=== PATIENT | female | born 1945 | race Caucasian/White ===

== ENCOUNTER 2016-11-10 14:26 | Emergency (ER) | payer OTHER, BC ==
[~2016-11-10] VITALS: Ht 162.6 cm; Wt 72.6 kg
[~2016-11-10 14:26] MED LIST: ACETAMINOPHEN325 M1 PO; ASPIR 8181 M1 PO; ASPIRIN EC81 M1 PO; AVAPRO 150 MG150 M1 PO; B12INJ IM; CALCIUM 500 +1 EAC5 PO; CALCIUM 600 +1 EAC1 PO; CALTRATE 600 +1 EACH PO; CARAFATE 1 GM TA1 G1 PO; COLACE100 MG PO; COUMADIN 1MG TAB1 M1 PO; COUMADIN 5 MG TA5 M1 PO; COUMADIN6 MG PO; CRESTOR10 MG PO; CRESTOR20 MG PO; DAILY VITAMIN1 EAC5 PO; ESTRACE1 MG PO; GENTEAL3.5 ML OPHTHALMIC; HYDROCODONE-AP1 EAC6; LIPITOR20 MG PO; MACROBID 100 M100 M1 PO; MINIPRIN81 MG PO; MUCINEX600 MG PO; MULTIVITAMINS1 EAC7 PO; NORTRIPTYLINE H25 M3 PO; NORVASC 2.5 MG2.5 M1 PO; PREMARIN VAGI42.5 G1 TOP; PROPRANOLOL 1010 MG PO; PROPRANOLOL 20M20 M1 PO; PROTONIX40 M1 PO; PROTONIX40 M3 PO; PROZAC 20 MG20 M1 PO; PROZAC 20 MG20 MG PO; REFRESH5 ML OPHTHALMIC; SENNA PO; THERA-M CAPLET1 EACH PO; TRAMADOL 50 MG50 MG PO; TYLENOL EX-STR500 M2 PO; ULTRAM 50MG TAB50 MG PO; VISINE15 ML OPHTHALMIC; VITAMIN D1000 UNI1 PO; XANAX 0.5 MG0.5 M1 PO; XANAX 0.5 MG0.5 MG PO; XANAX PO; XANAX XR1 MG PO; XANAX1 MG PO
[2016-11-10] MEDS ORDERED: PROPRANOLOL 20M20 M1 PO (14:43)
[2016-12-02] MEDS ORDERED: DULCOLAX5 MG PO (11:14)
[2016-12-02] MEDS ORDERED: COUMADIN 3 MG TA3 M1 PO (11:14)
[2016-12-02] MEDS ORDERED: COUMADIN 5 MG TA5 M1 PO (11:14)
[2016-12-02] MEDS ORDERED: MIRALAX17 GM PO (11:14)
[2016-12-02] MEDS ORDERED: NORCO 5-325 TA1 EACH PO (11:14)
[2016-12-03] MEDS ORDERED: ENOXAPARIN80 MG/0.1 SUBQ (15:26)
[2016-12-03] MEDS ORDERED: DUONEB 2.5-0.5 M3 ML INH (16:18)
== END 2016-11-10 17:07 | disposition home or self-care (01) ==
LOC: ER 14:26
DX: S76.812A Strain of other specified muscles, fascia and tendons at thigh level, left thigh, initial encounter (principal); W19.XXXA Unspecified fall, initial encounter; Y93.89 Activity, other specified; Y92.89 Other specified places as the place of occurrence of the external cause; Y99.8 Other external cause status; I10 Essential (primary) hypertension; F10.99 Alcohol use, unspecified with unspecified alcohol-induced disorder; Z90.710 Acquired absence of both cervix and uterus; Z88.1 Allergy status to other antibiotic agents; Z91.011 Allergy to milk products; Z88.0 Allergy status to penicillin; Z88.2 Allergy status to sulfonamides; Z88.8 Allergy status to other drugs, medicaments and biological substances; Z91.09 Other allergy status, other than to drugs and biological substances; Z87.891 Personal history of nicotine dependence

== ENCOUNTER 2016-11-23 15:08 | Emergency (ER) | payer OTHER, BC ==
[~2016-11-23] VITALS: Ht 160 cm; Wt 68.0 kg
[2016-11-23 15:46] LABS: ABSOLUTE NEUTROPHILS 5.2 thou/uL (1.4-8.2); BASOPHILS 0.8 % (0.0-2.0); EOSINOPHILS 9.6 % (0.0-3.0); HEMOGLOBIN 11.2 gm/dL (12.0-15.0); LYMPHOCYTES 11.2 % (24.0-44.0); MCH 34.1 pg (26.0-34.0); MCV 97.3 fL (80.0-100.0); PLATELET COUNT 334 thou/uL (150-400); POLYS 61.4 % (36.0-66.0); RBC 3.29 mil/uL (4.20-5.00); RDW 13.4 % (10.5-14.5); WBC 8.5 thou/uL (4.0-11.0)
[2016-11-23 15:52] LABS: POTASSIUM 4.4 mmol/L (3.5-5.1)
[2016-11-23 15:59] LABS: INR 3.3; PROTIME 34.3 Seconds (9.3-11.4)
[2016-11-23 16:01] LABS: MANUAL DIFF NO
[2016-11-23 16:29] LABS: URINE BILIRUBIN NEGATIVE (Negative); URINE BLOOD TRACE (Negative); URINE COLOR YELLOW; URINE GLUCOSE-RANDOM* NEGATIVE (Negative); URINE KETONES NEGATIVE (Negative); URINE LEUKOCYTES-REFLEX NEGATIVE (Negative); URINE PROTEIN (DIPSTICK) NEGATIVE (Negative); URINE SPECIFIC GRAVITY 1.015 (1.003-1.035); URINE UROBILINOGEN 0.2 E.U./dl (0.2-1.0)
[2016-11-23] MEDS ORDERED: PREDNISONE 20 M20 MG PO (16:49)
[2016-11-23] MEDS ORDERED: PROVENTIL HFA6.7 G1 INH (16:49)
[2016-11-23] MEDS ORDERED: HYDROCODONE-AP1 EAC6 PO (16:54)
[2016-11-23] MEDS ORDERED: ZPAK PO (17:35)
[2016-12-02] MEDS ORDERED: COUMADIN 5 MG TA5 M1 PO (11:14)
[2016-12-02] MEDS ORDERED: MIRALAX17 GM PO (11:14)
[2016-12-02] MEDS ORDERED: DULCOLAX5 MG PO (11:14)
[2016-12-02] MEDS ORDERED: COUMADIN 3 MG TA3 M1 PO (11:14)
[2016-12-02] MEDS ORDERED: NORCO 5-325 TA1 EACH PO (11:14)
[2016-12-03] MEDS ORDERED: ENOXAPARIN80 MG/0.1 SUBQ (15:26)
[2016-12-03] MEDS ORDERED: DUONEB 2.5-0.5 M3 ML INH (16:18)
== END 2016-11-23 17:39 | disposition home or self-care (01) ==
LOC: ER 15:08
PROVIDERS: Physician Assistant
DX: S32.512A Fracture of superior rim of left pubis, initial encounter for closed fracture (principal); I63.9 Cerebral infarction, unspecified; M81.0 Age-related osteoporosis without current pathological fracture; E78.5 Hyperlipidemia, unspecified; F32.9 Major depressive disorder, single episode, unspecified; F41.9 Anxiety disorder, unspecified; I10 Essential (primary) hypertension; Z90.710 Acquired absence of both cervix and uterus; Z88.0 Allergy status to penicillin; Z88.1 Allergy status to other antibiotic agents; Z88.2 Allergy status to sulfonamides; Z91.011 Allergy to milk products; Z87.891 Personal history of nicotine dependence; W18.30XA Fall on same level, unspecified, initial encounter; Y93.89 Activity, other specified; Y92.89 Other specified places as the place of occurrence of the external cause; Y99.9 Unspecified external cause status

== ENCOUNTER → 2021-10-02 | Emergency (ER) | payer OTHER, BC ==
[~2021-10-02] VITALS: Ht 162.6 cm; Wt 68.0 kg
[~2021-10-02] MED LIST changes: +COUMADIN 3 MG TA3 M1 PO; +DULCOLAX5 MG PO; +DUONEB 2.5-0.5 M3 ML INH; +ENOXAPARIN80 MG/0.1 SUBQ; +HYDROCODONE-AP1 EAC6 PO; +MIRALAX17 GM PO; +NORCO 5-325 TA1 EACH PO; +PREDNISONE 20 M20 MG PO; +PROVENTIL HFA6.7 G1 INH; +ZPAK PO
--- NOTE | ~2021-10-02 | EMS ---
[place] [address] EMS Patient Care Report Name: DEE DEE MACIAS Room #: REG WILLEM [facility]#: [id number] Admission: 10/02/21 Attend Phys: Discharge: Date of : 45 Report #: [id number] THIS REPORT FOR: //name// Report Transmitted: 10/05/2021 06:47 EMS Care Summary [place], [place]/[facility] Incident [id number] @ 10/02/2021 11:03 Incident Location [address] [id number] Patient DEE DEE WHITE Female, 76 Years 1945 Patient Address [address] [place] [address] Patient History Other, Patient Allergies Other drug allergy, Patient Medications Warfarin, Chief Complaint constipation Disposition Transported No Lights/[place] Dispatch Reason Abdominal Pain/Problems Transported To [facility] Narrative M29 dispatched to sick at residence. O/A M29 found female walking out to 9. Pt reported she had abdominal discomfort. Pt reported she had a bowel movement yesterday, but had to take laxatives'. Pt moved to [facility].Pt transported to [place]. [address] [address] EMS Patient Care Report Name: DEE DEE MACIAS Room #: REG WILLEM [facility]#: [id number] Admission: 10/02/21 Attend Phys: Discharge: Date of : 45 Report #: [id number] Initial Vitals @11:16P: 67,R: 18,BP: 136/64,Pain: 0/10,GCS: 14,CO: 0,SpO2: 97,Revised Trauma: 12, @11:18P: 68,R: 18,BP: 139/59,Pain: 0/10,GCS: 14,CO: 1,SpO2: 97,Revised Trauma: 12, Assessments @11:17MENTAL:Confused,Place Oriented,Person Oriented,Event Oriented,SKIN:No Abnormalities,HEENT:Head/Face: No Abnormalities,Eyes: No Abnormalities,Neck/Airway: No Abnormalities,LUNG SOUNDS:General: No Abnormalities,Left Upper: No Abnormalities,Right Upper: No Abnormalities,Left Lower: No Abnormalities,Right Lower: No Abnormalities,ABDOMEN:General: No Abnormalities,Left Upper: No Abnormalities,Right Upper: No Abnormalities,Left Lower: No Abnormalities,Right Lower: No Abnormalities,PELVIS//GI:No Abnormalities,EXTREMITIES:Left Arm: No Abnormalities,Right Arm: No Abnormalities,Left Leg: No Abnormalities,Right Leg: No Abnormalities,PULSE:NEURO:No Abnormalities,@11:23MENTAL:Confused,Event Oriented,Place Oriented,Person Oriented,SKIN:No Abnormalities,HEENT:Head/Face: No Abnormalities,Eyes: No Abnormalities,Neck/Airway: No Abnormalities,LUNG SOUNDS:General: No Abnormalities,Left Upper: No Abnormalities,Right Upper: No Abnormalities,Left Lower: No Abnormalities,Right Lower: No Abnormalities,ABDOMEN:General: No Abnormalities,Left Upper: No Abnormalities,Right Upper: No Abnormalities,Left Lower: No Abnormalities,Right Lower: No Abnormalities,PELVIS//GI:No Abnormalities,EXTREMITIES:Left Arm: No Abnormalities,Right Arm: No Abnormalities,Left Leg: No Abnormalities,Right Leg: No Abnormalities,PULSE:NEURO:No Abnormalities, Impression Abdominal Pain Timeline 11:,Call Received 11:01,Dispatch Notified 11:03,Dispatched 11:04,En Route 11:10,On Scene 11:11,At Patient 11:16,BP: 136/64 M,PULSE: 67,RR: 18 R,SPO2: 97 Ox,ETCO2: ,BG: ,PAIN: 0,GCS: 14, 11:18,BP: 139/59 M,PULSE: 68,RR: 18 R,SPO2: 97 Ox,ETCO2: ,BG: ,PAIN: 0,GCS: 14, 11:23,Depart Scene 11:42,At Destination 12:00,Call Closed Disclaimer [facility] [address] [place] [address] EMS Patient Care Report Name: DEE DEE MACIAS Room #: REG [facility]#: [id number] Admission: 10/02/21 Attend Phys: Discharge: Date of : 45 Report #: [id number] v1.1 Copyright 2020 [employer] This EMS Care Summary contains data elements from the applicable legal record (which may be displayed differently). It is designed to provide pertinent information for the following purposes: continuity of care, clinical quality, and state data reporting. The complete legal record is available to ED staff and administrators of the receiving hospital in [facility]'s Patient Tracker. All data is provided "as is."
[2021-10-02 12:25] LABS: ABSOLUTE NEUTROPHILS 6.3 thou/uL (1.4-8.2); BASOPHILS 0.8 % (0.0-2.0); EOSINOPHILS 2.5 % (0.0-3.0); HEMATOCRIT 32.5 % (37.0-47.0); LYMPHOCYTES 11.9 % (24.0-44.0); MCHC 33.7 g/dL (28.0-37.0); MCV 94.8 fL (80.0-100.0); PLATELET COUNT 292 thou/uL (150-400); POLYS 73.8 % (36.0-66.0); RBC 3.43 mil/uL (4.20-5.00); RDW 13.9 % (10.5-14.5); WBC 8.5 thou/uL (4.0-11.0)
[2021-10-02 12:38] LABS: ANION GAP 7 mmol/L (7-16); BUN 18 mg/dL (7-18); CALCIUM 8.8 mg/dL (8.5-10.1); CHLORIDE 101 mmol/L (98-107); CO2 27 mmol/L (21-32); GLUCOSE 121 mg/dL (74-106); POTASSIUM 4.1 mmol/L (3.5-5.1); SODIUM 135 mmol/L (136-145)
[2021-10-02 12:43] LABS: ALBUMIN 3.3 g/dL (3.4-5.0); DIRECT BILIRUBIN < 0.1 mg/dL (<0.1-0.2); LIPASE 55 U/L (73-393); SGOT 18 U/L (15-37); SGPT 19 U/L (30-65); TOTAL BILIRUBIN 0.5 mg/dL (0.2-1.0); TOTAL PROTEIN 7.1 g/dL (6.4-8.2)
[2021-10-02 13:40] LABS: URINE BILIRUBIN NEGATIVE (Negative); URINE BLOOD NEGATIVE (Negative); URINE CLARITY CLEAR; URINE COLOR YELLOW; URINE GLUCOSE-RANDOM* NEGATIVE (Negative); URINE KETONES NEGATIVE (Negative); URINE NITRITE-REFLEX NEGATIVE (Negative); URINE PROTEIN (DIPSTICK) NEGATIVE (Negative); URINE SPECIFIC GRAVITY 1.015 (1.005-1.035); URINE UROBILINOGEN 0.2 E.U./dl (0.2-1.0)
[2021-10-02 13:41] LABS: URINE LEUKOCYTES-REFLEX 2+ (Negative)
[2021-10-02 13:52] LABS: SQUAMOUS 4-10 Moderate /LPF (0-3)
[2021-10-02 13:53] LABS: CASTS None Seen /LPF (None Seen); CRYSTALS None Seen /LPF (None Seen); URINE RBC None Seen /HPF (NONE SEEN)
[2021-10-02 14:48] VITALS: BP 142/58
== END ==
LOC: ER 11:48
PROVIDERS: Nurse Practitioner
DX: K59.00 Constipation, unspecified (principal); N39.0 Urinary tract infection, site not specified; I10 Essential (primary) hypertension; E78.5 Hyperlipidemia, unspecified; I73.9 Peripheral vascular disease, unspecified; M81.0 Age-related osteoporosis without current pathological fracture; F41.9 Anxiety disorder, unspecified; F32.9 Major depressive disorder, single episode, unspecified; Z86.73 Personal history of transient ischemic attack (TIA), and cerebral infarction without residual deficits; Z95.1 Presence of aortocoronary bypass graft; Z90.710 Acquired absence of both cervix and uterus; Z90.89 Acquired absence of other organs; Z98.890 Other specified postprocedural states; Z79.891 Long term (current) use of opiate analgesic; Z79.899 Other long term (current) drug therapy; Z79.1 Long term (current) use of non-steroidal anti-inflammatories (NSAID); Z88.6 Allergy status to analgesic agent; Z88.1 Allergy status to other antibiotic agents; Z91.011 Allergy to milk products; Z88.0 Allergy status to penicillin; Z88.2 Allergy status to sulfonamides; Z91.018 Allergy to other foods; Z91.048 Other nonmedicinal substance allergy status; Z87.891 Personal history of nicotine dependence

== ENCOUNTER 2021-10-26 00:36 | Emergency (ER) | payer OTHER, BC ==
[~2021-10-26] VITALS: Ht 170.2 cm; Wt 86.2 kg
--- NOTE | ~2021-10-26 | EMS ---
[place] [id number] EMS Patient Care Report Name: DEE DEE MACIAS Room #: DEP WILLEM [facility]en[facility]#: [id number] Admission: 10/26/21 Attend Phys: Discharge: 10/26/21 Date of : 45 Report #: [id number] THIS REPORT FOR: //name// Report Transmitted: 10/29/2021 14:53 EMS Care Summary [place], [place]/[facility] Incident [id number] @ 10/25/2021 23:56 Incident Location [address] [place] [address] Patient DEE DEE MACIAS Female, 76 Years 1945 Patient Address [address] [place] [address] Patient History Dementia,Cardiac Condition - Other, Patient Allergies No known allergies, Patient Medications Avapro, Coumadin, Calcium, Senna, Xanax, Propranolol, Chief Complaint LOWER ABD PAIN AND CONSTIPATION Disposition Transported No Lights/[place] Dispatch Reason Abdominal Pain/Problems Transported To [facility] Narrative UPON ARRIVAL WE FOUND OUR 76 YEAR OLD FEMALE PATIENT, WITH A HX OF DEMENTIA, SITTING IN THE KITCHEN OF A RESIDENCE WITH HER BY HER SIDE COMPLAINING OF CAMPY LOWER ABD PAIN AND CONSTIPATION X 3 DAYS. THE PATIENT DENIES ANY N/V/D AND SHE REQUESTS TRANSPORT TO [facility] FOR EVALUATION. [place] [id number] EMS Patient Care Report Name: DEE DEE MACIAS [id number] Admission: 10/26/21 Attend Phys: Discharge: 10/26/21 Date of : 45 Report #: [id number] Initial Vitals @00:18P: 58,R: 16,BP: 159/80,Pain: 4/10,GCS: 14,SpO2: 97,Revised Trauma: 12, @00:33P: 60,R: 18,BP: 160/80,Pain: 4/10,GCS: 14,SpO2: 97,Revised Trauma: 12, Assessments @00:08MENTAL:Confused,Place Oriented,Event Oriented,Person Oriented,SKIN:HEENT:Eyes: Right Pupil: 4-mm,Eyes: Left Pupil: 4-mm,Head/Face: No Abnormalities,Neck/Airway: No Abnormalities,LUNG SOUNDS:Left Lower: Tenderness,Right Lower: Tenderness,General: Other,ABDOMEN:Left Lower: Tenderness,Right Lower: Tenderness,General: Other,PELVIS//GI:No Abnormalities,EXTREMITIES:Left Arm: No Abnormalities,Right Arm: No Abnormalities,Left Leg: No Abnormalities,Right Leg: No Abnormalities,PULSE:Radial: 2+ Normal,NEURO:No Abnormalities, Impression Constipation Procedures @00:08 ALS Assessment Response: UnchangedSucceeded Timeline 23:45,Dispatch Notified 23:56,Dispatched 23:58,En Route 00:06,On Scene 00:08,At Patient 00:08,ALS Assessment,Response: UnchangedSucceeded, 00:18,BP: 159/80 M,PULSE: 58,RR: 16 R,SPO2: 97 Ox,ETCO2: ,BG: ,PAIN: 4,GCS: 14, 00:19,Depart Scene 00:33,BP: 160/80 M,PULSE: 60,RR: 18 R,SPO2: 97 Ox,ETCO2: ,BG: ,PAIN: 4,GCS: 14, 00:34,At Destination 00:42,Call Closed 23:45,Call Received Disclaimer v1.1 Copyright 2020 [employer] This EMS Care Summary contains data elements from the applicable legal record (which may be displayed differently). It is designed to provide pertinent information for the following purposes: continuity of care, clinical quality, and state data reporting. The complete legal record is available to ED staff and administrators of the receiving hospital in [employer]'s Patient Tracker. All data is provided "as is."
[2021-10-26 01:21] LABS: ABSOLUTE NEUTROPHILS 6.1 thou/uL (1.4-8.2); BASOPHILS 0.6 % (0.0-2.0); EOSINOPHILS 4.1 % (0.0-3.0); HEMATOCRIT 31.5 % (37.0-47.0); HEMOGLOBIN 10.8 gm/dL (12.0-15.0); MCH 32.4 pg (26.0-34.0); MCHC 34.3 g/dL (28.0-37.0); MCV 94.5 fL (80.0-100.0); MONOCYTES 10.5 % (1.0-8.0); PLATELET COUNT 317 thou/uL (150-400); POLYS 64.8 % (36.0-66.0); RBC 3.33 mil/uL (4.20-5.00); RDW 13.8 % (10.5-14.5); WBC 9.3 thou/uL (4.0-11.0)
[2021-10-26 01:28] LABS: CREATININE 1.2 mg/dL (0.6-1.0); POTASSIUM 3.9 mmol/L (3.5-5.1)
[2021-10-26] MEDS ORDERED: NAPROXEN375 MG PO (04:02)
[2021-10-26] MEDS ORDERED: MIRALAX119 GM PO (04:02)
[2021-10-26 05:54] VITALS: BP 168/65
== END 2021-10-26 06:35 | disposition home or self-care (01) ==
LOC: ER 00:36
PROVIDERS: Emergency Medicine
DX: R10.30 Lower abdominal pain, unspecified (principal); I10 Essential (primary) hypertension; E78.5 Hyperlipidemia, unspecified; I73.9 Peripheral vascular disease, unspecified; F41.9 Anxiety disorder, unspecified; F32.9 Major depressive disorder, single episode, unspecified; Z86.73 Personal history of transient ischemic attack (TIA), and cerebral infarction without residual deficits; Z95.1 Presence of aortocoronary bypass graft; Z90.710 Acquired absence of both cervix and uterus; Z90.89 Acquired absence of other organs; Z98.890 Other specified postprocedural states; Z79.82 Long term (current) use of aspirin; Z79.1 Long term (current) use of non-steroidal anti-inflammatories (NSAID); Z79.891 Long term (current) use of opiate analgesic; Z79.899 Other long term (current) drug therapy; Z88.6 Allergy status to analgesic agent; Z88.1 Allergy status to other antibiotic agents; Z91.011 Allergy to milk products; Z88.0 Allergy status to penicillin; Z88.2 Allergy status to sulfonamides; Z88.8 Allergy status to other drugs, medicaments and biological substances; Z91.09 Other allergy status, other than to drugs and biological substances; Z87.891 Personal history of nicotine dependence

== ENCOUNTER 2021-12-09 15:34 | Emergency (ER) | payer OTHER, BC ==
[~2021-12-09] VITALS: Ht 160 cm; Wt 68.0 kg
--- NOTE | ~2021-12-09 | EMS ---
[address] [address] EMS Patient Care Report Name: DEE DEE MACIAS Room #: DEP WILLEM [facility]en[facility]#: [id number] Admission: 12/09/21 Attend Phys: Discharge: 12/09/21 Date of : 45 Report #: [id number] THIS REPORT FOR: //name// Report Transmitted: 12/11/2021 13:59 EMS Care Summary [place], [place]/[facility] Incident [id number] @ 12/09/2021 15:00 Incident Location [address] [place] [address] Patient DEE DEE MACIAS Female, 76 Years 1945 Patient Address [address] [place] [address] Patient History Dementia,Cardiac Condition - Other, Patient Allergies No known allergies, Patient Medications Calcium, Avapro, Senna, Coumadin, Xanax, Propranolol, Chief Complaint bowel obstruction Disposition Transported No Lights/[place] Dispatch Reason Abdominal Pain/Problems Transported To [facility] Narrative arrived to find patient meeting the ambulance stating that she has been having abdominal pain for a few days. patient states that her stomach is now swollen and that she thinks it is a bowel obstruction which she has a history of. patient and all belongings are taken to [facility] [place] further [place] [address] EMS Patient Care Report Name: DEE DEE MACIAS [facility] #: [facility] [id number] Admission: 12/09/21 Attend Phys: Discharge: 12/09/21 Date of : 45 Report #: [id number] patient is conscious and breathing upon leaving the room. Initial Vitals @15:10P: 68,R: 20,BP: 147/64,Pain: 6/10,GCS: 15,SpO2: 99,Revised Trauma: 12, @15:21P: 68,R: 20,BP: 140/68,Pain: 6/10,GCS: 15,SpO2: 98,Revised Trauma: 12, Assessments @15:09MENTAL:No Abnormalities,SKIN:No Abnormalities,HEENT:Head/Face: No Abnormalities,Eyes: No Abnormalities,Neck/Airway: No Abnormalities,LUNG SOUNDS:Left Lower: Tenderness,Right Lower: Tenderness,Right Upper: Tenderness,Right Lower: Distension,Left Lower: Distension,Left Upper: Distension,Left Upper: Tenderness,Right Upper: Distension,General: Other,ABDOMEN:Left Lower: Tenderness,Right Lower: Tenderness,Right Upper: Tenderness,Right Lower: Distension,Left Lower: Distension,Left Upper: Distension,Left Upper: Tenderness,Right Upper: Distension,General: Other,PELVIS//GI:No Abnormalities,EXTREMITIES:Left Arm: No Abnormalities,Right Arm: No Abnormalities,Left Leg: No Abnormalities,Right Leg: No Abnormalities,PULSE:NEURO:No Abnormalities, Impression Abdominal Pain Procedures @15:08 ALS Assessment Response: UnchangedSucceeded @15:09 Stretcher Response: Unchanged Timeline 14:55,Call Received 14:55,Dispatch Notified 15:00,Dispatched 15:01,En Route 15:07,On Scene 15:08,At Patient 15:08,ALS Assessment,Response: UnchangedSucceeded, 15:09,Stretcher,Response: Unchanged 15:10,BP: 147/64 M,PULSE: 68,RR: 20 R,SPO2: 99 Ox,ETCO2: ,BG: ,PAIN: 6,GCS: 15, 15:20,Depart Scene 15:21,BP: 140/68 M,PULSE: 68,RR: 20 R,SPO2: 98 Ox,ETCO2: ,BG: ,PAIN: 6,GCS: 15, 15:30,At Destination 15:40,Call Closed Disclaimer v1.1 Copyright 2021 [employer] This EMS Care Summary contains data elements from the applicable legal record (which may be displayed differently). It is designed to provide pertinent [facility] [address] [place] [address] EMS Patient Care Report Name: DEE DEE MACIAS Room #: DEP [facility].#: [id number] Admission: 12/09/21 Attend Phys: Discharge: 12/09/21 Date of : 45 Report #: [id number] information for the following purposes: continuity of care, clinical quality, and state data reporting. The complete legal record is available to ED staff and administrators of the receiving hospital in [employer]'s Patient Tracker. All data is provided "as is."
[~2021-12-09 15:34] MED LIST changes: +MIRALAX119 GM PO; +NAPROXEN375 MG PO
[2021-12-09] MEDS ORDERED: PROTONIX40 M2 PO (15:57)
[2021-12-09] MEDS ORDERED: ROSUVASTATIN CAL5 MG PO (15:59)
[2021-12-09] MEDS ORDERED: IRBESARTAN150 MG PO (16:00)
[2021-12-09 16:22] LABS: ABSOLUTE NEUTROPHILS 4.3 thou/uL (1.4-8.2); BASOPHILS 0.9 % (0.0-2.0); EOSINOPHILS 2.9 % (0.0-3.0); HEMATOCRIT 31.8 % (37.0-47.0); HEMOGLOBIN 10.7 gm/dL (12.0-15.0); LYMPHOCYTES 22.8 % (24.0-44.0); MCH 31.9 pg (26.0-34.0); MCHC 33.8 g/dL (28.0-37.0); MCV 94.5 fL (80.0-100.0); MONOCYTES 11.9 % (1.0-8.0); PLATELET COUNT 304 thou/uL (150-400); POLYS 61.5 % (36.0-66.0); RBC 3.36 mil/uL (4.20-5.00); RDW 13.9 % (10.5-14.5)
[2021-12-09 16:38] LABS: CALCIUM 8.5 mg/dL (8.5-10.1); POTASSIUM 4.7 mmol/L (3.5-5.1)
[2021-12-09 16:46] LABS: ALBUMIN 3.6 g/dL (3.4-5.0); TOTAL BILIRUBIN 0.4 mg/dL (0.2-1.0); TOTAL PROTEIN 6.6 g/dL (6.4-8.2)
[2021-12-09 16:59] LABS: URINE BILIRUBIN NEGATIVE (Negative); URINE BLOOD NEGATIVE (Negative); URINE CLARITY CLEAR; URINE COLOR YELLOW; URINE GLUCOSE-RANDOM* NEGATIVE (Negative); URINE KETONES NEGATIVE (Negative); URINE LEUKOCYTES-REFLEX NEGATIVE (Negative); URINE NITRITE-REFLEX NEGATIVE (Negative); URINE PROTEIN (DIPSTICK) NEGATIVE (Negative); URINE UROBILINOGEN 0.2 E.U./dl (0.2-1.0)
[2021-12-09 18:21] VITALS: BP 148/79
--- NOTE | 2021-12-10 08:30 | EKG ---
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 12/10/21 0829 [id number] Celso Chavez MD, FACC /EPI
== END 2021-12-09 18:28 | disposition home or self-care (01) ==
LOC: ER 15:34
PROVIDERS: Emergency Medicine
DX: R10.84 Generalized abdominal pain (principal); I10 Essential (primary) hypertension; E78.5 Hyperlipidemia, unspecified; F32.9 Major depressive disorder, single episode, unspecified; F41.9 Anxiety disorder, unspecified; Z79.899 Other long term (current) drug therapy; Z90.710 Acquired absence of both cervix and uterus; Z90.49 Acquired absence of other specified parts of digestive tract; Z88.0 Allergy status to penicillin; Z88.2 Allergy status to sulfonamides; Z91.011 Allergy to milk products; Z88.1 Allergy status to other antibiotic agents; Z87.891 Personal history of nicotine dependence